=== PATIENT | female | born 1995 | race Two or more races ===

== ENCOUNTER 2020-05-29 18:12 | Emergency (ER) | payer MEDICAID ==
[~2020-05-29] VITALS: Ht 152.4 cm; Wt 66.2 kg
--- NOTE | 2020-05-29 18:20 | NUR ---
AAOX3, CAME TO ER C/O NAUSEA X 8 WEEKS. UNKNOWN IF SHE'S . RR IS EVEN AND UNLABORED WITH NAD NOTED. SKIN IS WARM AND DRY.
[2020-05-29] MEDS ORDERED: ONDANSETRON 4 MG TAB.RAPDIS SL ONE (18:30)
[2020-05-29] MEDS ORDERED: ONDANSETRON 4 MG TAB.RAPDIS ONE (18:37)
[2020-05-29 18:46] LABS: APPEARANCE,URINE Clear (CLEAR); BILIRUBIN,URINE Negative (NEGATIVE); BLOOD, URINE Trace-intact Ery/uL (NEGATIVE); COLOR,URINE Yellow (YELLOW); KETONES,URINE Negative (NEGATIVE); LEUKOCYTE ESTERASE ,URINE Negative (NEGATIVE); NITRITE, URINE Negative (NEGATIVE); PROTEIN,URINE Negative (NEGATIVE); UGLUCOSE Negative (NEGATIVE)
--- NOTE | 2020-05-29 19:09 | NUR ---
COVID SWAB SENT.
[2020-05-29 19:13] LABS: BACTERIA,URINE Few /HPF (None Seen); SQUAMOUS EPITHELIAL CELL,UR Many /HPF (None Seen)
[2020-05-29 19:14] LABS: RBC,URINE 0-2 /HPF (0-2); WBC,URINE 0-2 /HPF (0-3)
[2020-05-29 19:23] VITALS: BP 111/75
--- NOTE | 2020-05-29 19:23 | NUR ---
Patient discharged to home in stable condition. Written and verbal after care instructions given. Patient verbalizes understanding of instruction and RX. Pt ambulated with steady gait. vss.
== END 2020-05-29 19:23 | disposition home or self-care (01) ==
LOC: ER 18:22
DX: R11.0 Nausea (principal); Z20.828 Contact with and (suspected) exposure to other viral communicable diseases
CPT/HCPCS: 81001; 84703; 99283; C9803; Q0162; U0003; 81000-TC

== ENCOUNTER 2021-12-23 17:30 | Emergency (ER) | payer MEDICAID, OTHER ==
[~2021-12-23] VITALS: Ht 152.4 cm; Wt 66.2 kg
[2021-12-23 17:43] VITALS: BP 115/76
--- NOTE | 2021-12-23 17:43 | NUR ---
C/O HEADACHE X 10 DAYS -N/V/DIZZINESS
[2021-12-23] MEDS ORDERED: IBUPROFEN 400 MG TABLET PO ONE (18:30)
[2021-12-23] MEDS ORDERED: IBUPROFEN 400 MG TABLET ONE (18:35)
[2021-12-23] MEDS ORDERED: IBUP-1957 PO (19:17)
[2021-12-23] MEDS ORDERED: SUMATRIPTAN SUCCINATE 6 MG/0.5 ML VIAL SQ ONE ×2 (19:30→19:38)
--- NOTE | 2021-12-23 20:36 | NUR ---
Patient discharged to home in stable condition. Written and verbal after care instructions given. Patient verbalizes understanding of instruction.
== END 2021-12-23 20:37 | disposition home or self-care (01) ==
LOC: ER 17:34
DX: R51.9 Headache, unspecified (principal)
CPT/HCPCS: 96372; 99283; J3030